=== PATIENT | female | born 1975 | race African-American/Black ===

== ENCOUNTER 2020-08-27 12:59 | Outpatient (CLI) | payer OTHER ==
[2020-08-27 13:48] LABS: BASOPHILS # (AUTO) 0.1 K/uL (0.0-0.2); BASOPHILS % (AUTO) 1.3 % (0.0-2.0); EOSINOPHILS # (AUTO) 0.4 K/uL (0.0-0.4); EOSINOPHILS % (AUTO) 10.5 % (0.0-4.0); HEMATOCRIT 32.8 % (36-48); HEMOGLOBIN 10.4 g/dL (12.0-16.0); LYMPHOCYTES # (AUTO) 1.7 K/uL (1.0-5.5); MEAN CORPUSCULAR HEMOGLOBIN 23 pg (27-31); MEAN CORPUSCULAR HGB CONC 32 % (32-36); MEAN CORPUSCULAR VOLUME 71 fL (79.0-98.0); MONOCYTES # (AUTO) 0.3 K/uL (0.0-1.0); MONOCYTES % (AUTO) 8.3 % (1.7-9.3); NEUTROPHILS # (AUTO) 1.6 K/uL (1.8-7.7); NEUTROPHILS % (AUTO) 37.9 % (40.0-70.0); PLATELET COUNT (AUTO) 170 K/uL (130-430); RED BLOOD CELL COUNT(AUTO) 4.61 MIL/uL (4.2-6.2); RED CELL DISTRIBUTION WIDTH 17.9 % (9.0-15.0); WHITE BLOOD COUNT (AUTO) 4.1 K/uL (4.8-10.8)
[2020-08-27 14:04] LABS: BILIRUBIN,URINE NEGATIVE (NEGATIVE); BLOOD, URINE NEGATIVE (NEGATIVE); CLARITY/URINE CLEAR (CLEAR); COLOR,URINE YELLOW (YELLOW); GLUCOSE,URINE NEGATIVE (NEGATIVE); KETONES,URINE NEGATIVE (NEGATIVE); LEUKOCYTE ESTERASE ,URINE NEGATIVE (NEGATIVE); NITRITE, URINE NEGATIVE (NEGATIVE); PROTEIN URINE NEGATIVE (NEGATIVE); UROBILINOGEN,URINE 0.2 (0.2-1.0)
[2020-08-27 14:14] LABS: ALANINE AMINOTRANSFERASE 19 U/L (12-78); ALBUMIN 3.2 g/dL (3.4-4.8); ASPARTATE AMINOTRANSFERASE 17 U/L (10-37); CALCIUM 8.2 mg/dL (8.4-11.0); CHLORIDE 105 mmol/L (98-107); CHOLESTEROL 157 mg/dL (<200); CREATININE 0.58 mg/dL (0.55-1.30); GLUCOSE 92 mg/dL (70-99); HDL CHOLESTEROL 56 mg/dL (>55); LDL CHOLESTEROL 94 mg/dL (<100); SODIUM SERUM 136 mmol/L (136-145); THYROID STIMULATING HORMONE 1.63 uIu/mL (0.34-4.82); TOTAL BILIRUBIN 0.3 mg/dL (0.0-1.0); TRIGLYCERIDES 43 mg/dL (30-150); UREA NITROGEN, BLOOD 5 mg/dL (8-21)
[2020-08-27 14:17] LABS: ANION GAP < 3 (5-15); GFR AFRICAN AMERICAN 144 mL/min (>90)
== END 2020-08-27 21:00 | disposition home or self-care (01) ==
LOC: SLB 12:59
PROVIDERS: ATTEND Internal Medicine
DX: Z00.00 Encounter for general adult medical examination without abnormal findings (principal); E03.9 Hypothyroidism, unspecified
CPT/HCPCS: 36415; 80053; 80061; 81003; 84443; 85025

== ENCOUNTER 2021-02-08 17:41 | Emergency (ER) | payer OTHER ==
[~2021-02-08] VITALS: Ht 167.6 cm; Wt 81.6 kg
[2021-02-08 17:45] VITALS: BP_SYST 144
--- NOTE | 2021-02-08 17:45 | NUR ---
Pt to [place] [id number] for evaluation. Report given to ANANT Watkins who will assume care.
--- NOTE | 2021-02-08 17:52 | NUR ---
Dr. Briones at bedside to assess.
--- NOTE | 2021-02-08 17:55 | NUR ---
Pt brought by self, A&Ox4, pt presents to ER with pelvic cramping/ vaginal bleeding, pt states he has Hx of fibroids, skin pink and warm, VSS, respirations even and unlabored.
[2021-02-08] MEDS ORDERED: HYDROcodone/ACETAMIN 5-325 MG TAB (NORCO/ VICODIN) PO ONE (18:30)
[2021-02-08] MEDS ORDERED: IBUPROFEN 600 MG TABLET PO ONE (18:30)
[2021-02-08 18:42] LABS: BILIRUBIN,URINE NEGATIVE (NEGATIVE); BLOOD, URINE NEGATIVE (NEGATIVE); CLARITY/URINE CLEAR (CLEAR); COLOR,URINE YELLOW (YELLOW); GLUCOSE,URINE NEGATIVE (NEGATIVE); KETONES,URINE NEGATIVE (NEGATIVE); LEUKOCYTE ESTERASE ,URINE NEGATIVE (NEGATIVE); NITRITE, URINE NEGATIVE (NEGATIVE); PH,URINE 7.5 (5.0-8.0); PROTEIN URINE NEGATIVE (NEGATIVE); UROBILINOGEN,URINE 0.2 (0.2-1.0)
[2021-02-08 18:43] LABS: BASOPHILS % (AUTO) 0.8 % (0.0-2.0); EOSINOPHILS # (AUTO) 0.5 K/uL (0.0-0.4); EOSINOPHILS % (AUTO) 11.9 % (0.0-4.0); HEMATOCRIT 34.6 % (36-48); HEMOGLOBIN 10.8 g/dL (12.0-16.0); LYMPHOCYTES # (AUTO) 1.3 K/uL (1.0-5.5); LYMPHOCYTES % (AUTO) 30.1 % (20.5-51.5); MEAN CORPUSCULAR HEMOGLOBIN 22 pg (27-31); MEAN CORPUSCULAR HGB CONC 31 % (32-36); MEAN CORPUSCULAR VOLUME 71 fL (79.0-98.0); MONOCYTES # (AUTO) 0.4 K/uL (0.0-1.0); MONOCYTES % (AUTO) 9.3 % (1.7-9.3); NEUTROPHILS # (AUTO) 2.1 K/uL (1.8-7.7); NEUTROPHILS % (AUTO) 47.9 % (40.0-70.0); PLATELET COUNT (AUTO) 173 K/uL (130-430); RED BLOOD CELL COUNT(AUTO) 4.91 MIL/uL (4.2-6.2); RED CELL DISTRIBUTION WIDTH 18.3 % (9.0-15.0); WHITE BLOOD COUNT (AUTO) 4.3 K/uL (4.8-10.8)
[2021-02-08 18:48] LABS: CALCIUM 8.6 mg/dL (8.4-11.0); CREATININE 0.51 mg/dL (0.55-1.30); POTASSIUM 3.6 mmol/L (3.5-5.1)
[2021-02-08 18:54] LABS: ALBUMIN 3.5 g/dL (3.4-4.8); TOTAL BILIRUBIN 0.3 mg/dL (0.0-1.0)
[2021-02-08 18:59] LABS: PROTHROMBIN TIME 10.3 SECS (9.5-12.5)
--- NOTE | 2021-02-08 19:12 | NUR ---
Report given to June RN
[2021-02-08 19:24] LABS: C-REACTIVE PROTEIN QUANT 1.9 mg/dL (0-0.5)
[2021-02-08] MEDS ORDERED: AMOX-423 PO (19:37)
[2021-02-08] MEDS ORDERED: IBUP-1969 PO (19:37)
[2021-02-08] MEDS ORDERED: AMOXICILLIN/CLAVULANATE POTASSIUM 875 MG TABLET PO ONE (19:45)
[2021-02-08 20:06] VITALS: BP_SYST 144
--- NOTE | 2021-02-08 20:06 | NUR ---
Patient given written and verbal discharge instructions and verbalizes understanding. ER MD discussed with patient the results and treatment provided. Patient in stable condition. ID arm band removed. Rx of Augmentin and Ibuprofen given. Patient educated on pain management and to follow up with PMD. Pain Scale 1/10. Opportunity for questions provided and answered. Medication side effect fact sheet provided.
== END 2021-02-08 20:06 | disposition home or self-care (01) ==
LOC: SED 17:41
DX: K57.92 Diverticulitis of intestine, part unspecified, without perforation or abscess without bleeding (principal); Z79.899 Other long term (current) drug therapy
CPT/HCPCS: 36415; 76376; 80053; 81003; 82150; 83605; 83690; 84703; 85025; 85610-TC; 85730-TC; 86140; 99284

== ENCOUNTER 2021-02-10 09:35 | Emergency (ER) | payer OTHER ==
[~2021-02-10] VITALS: Ht 167.6 cm; Wt 81.6 kg
[~2021-02-10 09:35] MED LIST: AMOX-423 PO; IBUP-1969 PO
--- NOTE | 2021-02-10 09:43 | NUR ---
Dr. Briones to lobby to assess.
--- NOTE | 2021-02-10 09:45 | NUR ---
Pt to bed 7 for evaluation.
[2021-02-10 09:52] VITALS: BP_SYST 124
--- NOTE | 2021-02-10 09:52 | NUR ---
Pt AAO and ambulatory reporting history of fibroids and persistent intermittent pelvic pain that she describes as cramping. Pt rates pain level 3/10 currently. Pt only other history is thyroid. Pt was seen yesterday and came back for re-evaluation.
[2021-02-10 10:24] LABS: CALCIUM 8.4 mg/dL (8.4-11.0); CREATININE 0.41 mg/dL (0.55-1.30)
[2021-02-10 10:30] LABS: ALBUMIN 3.1 g/dL (3.4-4.8); TOTAL BILIRUBIN 0.1 mg/dL (0.0-1.0)
[2021-02-10 10:33] LABS: BASOPHILS % (AUTO) 1.3 % (0.0-2.0); EOSINOPHILS # (AUTO) 0.4 K/uL (0.0-0.4); EOSINOPHILS % (AUTO) 13.8 % (0.0-4.0); HEMATOCRIT 32.9 % (36-48); HEMOGLOBIN 10.2 g/dL (12.0-16.0); LYMPHOCYTES # (AUTO) 1.3 K/uL (1.0-5.5); LYMPHOCYTES % (AUTO) 50.5 % (20.5-51.5); MEAN CORPUSCULAR HEMOGLOBIN 22 pg (27-31); MEAN CORPUSCULAR HGB CONC 31 % (32-36); MEAN CORPUSCULAR VOLUME 70 fL (79.0-98.0); MONOCYTES # (AUTO) 0.2 K/uL (0.0-1.0); NEUTROPHILS % (AUTO) 27.4 % (40.0-70.0); PLATELET COUNT (AUTO) 161 K/uL (130-430); RED BLOOD CELL COUNT(AUTO) 4.71 MIL/uL (4.2-6.2); WHITE BLOOD COUNT (AUTO) 2.6 K/uL (4.8-10.8)
[2021-02-10 10:36] LABS: NEUTROPHILS # (AUTO) 0.7 K/uL (1.8-7.7)
--- NOTE | 2021-02-10 12:19 | NUR ---
NO ACUTE CHANGE IN STATUS, PT SITTING IN CHAIR. IN NAD.
--- NOTE | 2021-02-10 12:45 | NUR ---
Patient given written and verbal discharge instructions and verbalizes understanding. ER MD discussed with patient the results and treatment provided. Patient in stable condition. ID arm band removed. Patient educated on pain management and to follow up with PMD. Pain Scale [0]. Opportunity for questions provided and answered. Medication side effect fact sheet provided.
[2021-02-10 12:47] VITALS: BP_SYST 139
== END 2021-02-10 12:47 | disposition home or self-care (01) ==
LOC: SED 09:35
DX: K57.92 Diverticulitis of intestine, part unspecified, without perforation or abscess without bleeding (principal); D72.819 Decreased white blood cell count, unspecified; Z79.899 Other long term (current) drug therapy
CPT/HCPCS: 36415; 80053; 82150; 83690; 85025; 99283

== ENCOUNTER 2021-08-02 09:09 | Outpatient (CLI) | payer OTHER ==
[2021-08-02 11:29] LABS: BILIRUBIN,URINE NEGATIVE (NEGATIVE); BLOOD, URINE NEGATIVE (NEGATIVE); CLARITY/URINE CLEAR (CLEAR); GLUCOSE,URINE NEGATIVE (NEGATIVE); KETONES,URINE NEGATIVE (NEGATIVE); LEUKOCYTE ESTERASE ,URINE NEGATIVE (NEGATIVE); NITRITE, URINE NEGATIVE (NEGATIVE); PROTEIN URINE NEGATIVE (NEGATIVE); UROBILINOGEN,URINE 0.2 (0.2-1.0)
[2021-08-02 11:30] LABS: COLOR,URINE STRAW (YELLOW)
[2021-08-02 11:41] LABS: EOSINOPHILS # (AUTO) 0.5 K/uL (0.0-0.4); HEMATOCRIT 33.9 % (36-48); HEMOGLOBIN 10.8 g/dL (12.0-16.0); LYMPHOCYTES # (AUTO) 1.7 K/uL (1.0-5.5); LYMPHOCYTES % (AUTO) 46.3 % (20.5-51.5); MEAN CORPUSCULAR HEMOGLOBIN 23 pg (27-31); MEAN CORPUSCULAR HGB CONC 32 % (32-36); MEAN CORPUSCULAR VOLUME 71 fL (79.0-98.0); MONOCYTES # (AUTO) 0.3 K/uL (0.0-1.0); MONOCYTES % (AUTO) 7.2 % (1.7-9.3); NEUTROPHILS # (AUTO) 1.2 K/uL (1.8-7.7); NEUTROPHILS % (AUTO) 32.5 % (40.0-70.0); PLATELET COUNT (AUTO) 185 K/uL (130-430); RED BLOOD CELL COUNT(AUTO) 4.75 MIL/uL (4.2-6.2); RED CELL DISTRIBUTION WIDTH 18.6 % (9.0-15.0); WHITE BLOOD COUNT (AUTO) 3.7 K/uL (4.8-10.8)
[2021-08-02 11:53] LABS: CALCIUM 8.1 mg/dL (8.4-11.0); CREATININE 0.4 mg/dL (0.55-1.30); POTASSIUM 3.6 mmol/L (3.5-5.1); TOTAL BILIRUBIN 0.2 mg/dL (0.0-1.0); URIC ACID 2.6 mg/dL (2.4-7.0)
[2021-08-02 12:06] LABS: ALBUMIN 3.3 g/dL (3.4-4.8); THYROID STIMULATING HORMONE 0.38 uIu/mL (0.36-3.74)
[2021-08-05 12:52] LABS: HEMOGLOBIN A1C 6.1 % (4.8-5.6)
== END 2021-08-02 18:52 | disposition home or self-care (01) ==
LOC: SUS 09:09
PROVIDERS: ATTEND Internal Medicine
DX: N83.202 Unspecified ovarian cyst, left side (principal); N83.201 Unspecified ovarian cyst, right side; M54.50 Low back pain, unspecified; E78.5 Hyperlipidemia, unspecified; R73.9 Hyperglycemia, unspecified; D64.9 Anemia, unspecified; E56.9 Vitamin deficiency, unspecified; E55.9 Vitamin D deficiency, unspecified; I50.9 Heart failure, unspecified
CPT/HCPCS: 36415; 71046-TC; 71250-TC; 76376; 76856-TC; 80053; 80061; 81003; 82306; 82607; 83036; 83540; 83550; 83880; 84443; 84550; 85025

== ENCOUNTER 2022-07-14 10:02 | Outpatient (CLI) | payer OTHER ==
[2022-07-14 11:20] LABS: EOSINOPHILS # (AUTO) 0.3 K/uL (0.0-0.4); HEMATOCRIT 35.6 % (36-48); HEMOGLOBIN 11.3 g/dL (12.0-16.0); LYMPHOCYTES # (AUTO) 1.6 K/uL (1.0-5.5); LYMPHOCYTES % (AUTO) 46.6 % (20.5-51.5); MEAN CORPUSCULAR HEMOGLOBIN 24 pg (27-31); MEAN CORPUSCULAR HGB CONC 32 % (32-36); MEAN CORPUSCULAR VOLUME 77 fL (79.0-98.0); MONOCYTES # (AUTO) 0.3 K/uL (0.0-1.0); MONOCYTES % (AUTO) 8.8 % (1.7-9.3); NEUTROPHILS # (AUTO) 1.1 K/uL (1.8-7.7); NEUTROPHILS % (AUTO) 33.6 % (40.0-70.0); PLATELET COUNT (AUTO) 192 K/uL (130-430); RED BLOOD CELL COUNT(AUTO) 4.64 MIL/uL (4.2-6.2); RED CELL DISTRIBUTION WIDTH 16.9 % (9.0-15.0); WHITE BLOOD COUNT (AUTO) 3.4 K/uL (4.8-10.8)
[2022-07-14 11:42] LABS: ALBUMIN 3.1 g/dL (3.4-4.8); CALCIUM 7.7 mg/dL (8.4-11.0); CREATININE 0.5 mg/dL (0.55-1.30); THYROID STIMULATING HORMONE 0.8 uIu/mL (0.34-4.82); TOTAL BILIRUBIN 0.2 mg/dL (0.0-1.0)
== END 2022-07-14 18:52 | disposition home or self-care (01) ==
LOC: SLB 10:02
PROVIDERS: ATTEND Otolaryngology
DX: Z11.1 Encounter for screening for respiratory tuberculosis (principal); E03.9 Hypothyroidism, unspecified; D64.9 Anemia, unspecified; E55.9 Vitamin D deficiency, unspecified; E56.9 Vitamin deficiency, unspecified
CPT/HCPCS: 36415; 71046-TC; 80053; 80061; 82306; 82607; 83037; 84443; 85025

== ENCOUNTER 2022-07-31 12:53 | Outpatient (CLI) | payer OTHER | END 2022-07-31 19:14 | disposition home or self-care (01) | LOC: SCT 12:53 | PROVIDERS: ATTEND Internal Medicine | DX: M51.36 Other intervertebral disc degeneration, lumbar region (principal); M51.27 Other intervertebral disc displacement, lumbosacral region; M48.061 Spinal stenosis, lumbar region without neurogenic claudication; M50.223 Other cervical disc displacement at C6-C7 level; M48.26 Kissing spine, lumbar region; M43.23 Fusion of spine, cervicothoracic region; E07.89 Other specified disorders of thyroid; R09.89 Other specified symptoms and signs involving the circulatory and respiratory systems; M47.812 Spondylosis without myelopathy or radiculopathy, cervical region; M47.816 Spondylosis without myelopathy or radiculopathy, lumbar region | CPT/HCPCS: 71250-TC; 72141; 72148; 76376; 76536-TC ==

== ENCOUNTER 2022-08-06 10:18 | Outpatient (CLI) | payer OTHER | END 2022-08-06 20:36 | disposition home or self-care (01) | LOC: SUS 10:18 | PROVIDERS: ATTEND Internal Medicine | DX: J18.9 Pneumonia, unspecified organism (principal); I65.29 Occlusion and stenosis of unspecified carotid artery | CPT/HCPCS: 71046-TC; 93880 ==

== ENCOUNTER 2022-08-11 10:53 | Outpatient (CLI) | payer OTHER | END 2022-08-11 18:32 | disposition home or self-care (01) | LOC: SUS 10:53 | PROVIDERS: ATTEND Internal Medicine | DX: I65.22 Occlusion and stenosis of left carotid artery (principal) | CPT/HCPCS: 93971 ==

== ENCOUNTER 2023-01-21 08:45 | Outpatient (CLI) | payer OTHER ==
[2023-01-21 10:20] LABS: HEMOGLOBIN A1C 5.98 % (<5.7)
[2023-01-21 10:31] LABS: ALBUMIN 3.2 g/dL (3.4-4.8); CALCIUM 8.9 mg/dL (8.4-11.0); CREATININE 0.47 mg/dL (0.55-1.30); POTASSIUM 3.8 mmol/L (3.5-5.1); THYROID STIMULATING HORMONE 0.45 uIu/mL (0.34-4.82); TOTAL BILIRUBIN 0.2 mg/dL (0.0-1.0); TOTAL PROTEIN, SERUM 6.8 g/dL (6.4-8.3)
[2023-01-21 10:44] LABS: BILIRUBIN,URINE NEGATIVE (NEGATIVE); BLOOD, URINE NEGATIVE (NEGATIVE); CLARITY/URINE CLEAR (CLEAR); COLOR,URINE YELLOW (YELLOW); GLUCOSE,URINE NEGATIVE (NEGATIVE); KETONES,URINE NEGATIVE (NEGATIVE); LEUKOCYTE ESTERASE ,URINE NEGATIVE (NEGATIVE); NITRITE, URINE NEGATIVE (NEGATIVE); PROTEIN URINE NEGATIVE (NEGATIVE); UROBILINOGEN,URINE 0.2 (0.2-1.0)
[2023-01-21 11:29] LABS: HEMATOCRIT 38.8 % (36-48); HEMOGLOBIN 12.3 g/dL (12.0-16.0); MEAN CORPUSCULAR HEMOGLOBIN 26 pg (27-31); MEAN CORPUSCULAR HGB CONC 32 % (32-36); MEAN CORPUSCULAR VOLUME 81 fL (79.0-98.0); PLATELET COUNT (AUTO) 169 K/uL (130-430); RED BLOOD CELL COUNT(AUTO) 4.78 MIL/uL (4.2-6.2); WHITE BLOOD COUNT (AUTO) 3.4 K/uL (4.8-10.8)
[2023-01-21 14:11] LABS: ATYPICAL LYMPHOCYTES % 5 % (0-0)
[2023-01-21 14:12] LABS: PLATELET ESTIMATE ADEQUATE (ADEQUATE)
[2023-01-21 14:19] LABS: EOSINOPHILS % (MANUAL) 11 % (0-7); LYMPHOCYTES % (MANUAL) 35 % (20-46); MONOCYTES % (MANUAL) 10 % (0-11)
[2023-01-21 14:56] LABS: BASOPHILS % (MANUAL) 0 % (0-2)
[2023-01-21 14:57] LABS: ERYTHROCYTE SEDIMENTATION RATE 38 MM/HR (0-20)
== END 2023-01-21 18:17 | disposition home or self-care (01) ==
LOC: SLB 08:45
PROVIDERS: ATTEND Internal Medicine
DX: N30.00 Acute cystitis without hematuria (principal); R73.9 Hyperglycemia, unspecified; E03.9 Hypothyroidism, unspecified; E78.5 Hyperlipidemia, unspecified; E55.9 Vitamin D deficiency, unspecified; E56.9 Vitamin deficiency, unspecified
CPT/HCPCS: 36415; 80053; 80061; 81001; 81003; 82306; 82607; 83037; 83735; 84443; 85007; 85027; 85651-TC

== ENCOUNTER 2023-01-26 08:16 | Outpatient (CLI) | payer OTHER | END 2023-01-26 18:30 | disposition home or self-care (01) | LOC: SCT 08:16 | PROVIDERS: ATTEND Internal Medicine | DX: R22.2 Localized swelling, mass and lump, trunk (principal); D64.9 Anemia, unspecified | CPT/HCPCS: 71270; 76376; Q9967 ==

== ENCOUNTER 2023-04-02 16:03 | Outpatient (CLI) | payer OTHER ==
[2023-04-02 17:34] LABS: ALBUMIN 3.4 g/dL (3.4-4.8); CALCIUM 8.8 mg/dL (8.4-11.0); CREATININE 0.68 mg/dL (0.55-1.30); POTASSIUM 4.1 mmol/L (3.5-5.1); TOTAL BILIRUBIN 0.2 mg/dL (0.0-1.0); TOTAL PROTEIN, SERUM 7.2 g/dL (6.4-8.3)
== END 2023-04-02 18:36 | disposition home or self-care (01) ==
LOC: SLB 16:03
PROVIDERS: ATTEND Internal Medicine
DX: E83.51 Hypocalcemia (principal); D64.9 Anemia, unspecified
CPT/HCPCS: 36415; 80053

== ENCOUNTER 2023-05-01 13:05 | Outpatient (CLI) | payer OTHER | END 2023-05-01 20:25 | disposition home or self-care (01) | LOC: SMI 13:05 | PROVIDERS: ATTEND Internal Medicine | DX: M47.817 Spondylosis without myelopathy or radiculopathy, lumbosacral region (principal); M51.27 Other intervertebral disc displacement, lumbosacral region; M51.37 Other intervertebral disc degeneration, lumbosacral region; M51.34 Other intervertebral disc degeneration, thoracic region; D17.39 Benign lipomatous neoplasm of skin and subcutaneous tissue of other sites | CPT/HCPCS: 72146; 72148 ==

== ENCOUNTER 2023-05-13 15:42 | Outpatient (CLI) | payer OTHER ==
[2023-05-13 16:35] LABS: HEMATOCRIT 37.1 % (36-48); HEMOGLOBIN 12.3 g/dL (12.0-16.0); MEAN CORPUSCULAR HEMOGLOBIN 27 pg (27-31); MEAN CORPUSCULAR HGB CONC 33 % (32-36); MEAN CORPUSCULAR VOLUME 81 fL (79.0-98.0); PLATELET COUNT (AUTO) 181 K/uL (130-430); RED CELL DISTRIBUTION WIDTH 14.4 % (9.0-15.0); WHITE BLOOD COUNT (AUTO) 3.9 K/uL (4.8-10.8)
[2023-05-13 17:00] LABS: ALBUMIN 3.3 g/dL (3.4-4.8); CALCIUM 8.5 mg/dL (8.4-11.0); CREATININE 0.52 mg/dL (0.55-1.30); HEMOGLOBIN A1C 5.88 % (<5.7); POTASSIUM 3.8 mmol/L (3.5-5.1); TOTAL BILIRUBIN 0.2 mg/dL (0.0-1.0); TOTAL IRON BIND. CAPACITY 421 ug/dL (250-450)
[2023-05-13 19:56] LABS: BAND % (MANUAL) 0 % (0-6); BASOPHILS % (MANUAL) 0 % (0-2); EOSINOPHILS % (MANUAL) 11 % (0-7); LYMPHOCYTES % (MANUAL) 40 % (20-46); MONOCYTES % (MANUAL) 7 % (0-11); PLATELET ESTIMATE ADEQUATE (ADEQUATE)
== END 2023-05-13 19:47 | disposition home or self-care (01) ==
LOC: SLB 15:42
PROVIDERS: ATTEND Internal Medicine
DX: D64.9 Anemia, unspecified (principal); R73.9 Hyperglycemia, unspecified
CPT/HCPCS: 36415; 80053; 83037; 83540; 83550; 85007; 85027

== ENCOUNTER 2023-05-15 13:24 | Outpatient (CLI) | payer OTHER ==
[2023-05-15] MEDS ORDERED: DIATR MEGLU/DIATRIZ SOD 30 ML SOLUTION PO ONE (13:35)
== END 2023-05-15 20:04 | disposition home or self-care (01) ==
LOC: SCT 13:24
PROVIDERS: ATTEND Internal Medicine
DX: R16.0 Hepatomegaly, not elsewhere classified (principal); K57.30 Diverticulosis of large intestine without perforation or abscess without bleeding; I87.8 Other specified disorders of veins; N83.02 Follicular cyst of left ovary; N83.01 Follicular cyst of right ovary
CPT/HCPCS: 74177; Q9967; Q9964

== ENCOUNTER 2023-06-01 13:15 | Outpatient (CLI) | payer OTHER | END 2023-06-01 18:13 | disposition home or self-care (01) | LOC: SUS 13:15 | PROVIDERS: ATTEND Specialist | DX: N83.292 Other ovarian cyst, left side (principal); N83.291 Other ovarian cyst, right side; R10.2 Pelvic and perineal pain; Z78.0 Asymptomatic menopausal state; N81.6 Rectocele; N81.10 Cystocele, unspecified | CPT/HCPCS: 76856 ==

== ENCOUNTER 2023-09-24 23:15 | Emergency (ER) | payer OTHER ==
[~2023-09-24] VITALS: Ht 167.6 cm; Wt 84.4 kg
[2023-09-24 23:18] VITALS: BP_SYST 147; PULSE 77; RESP 22; TEMP 97.3; O2SAT 98
[2023-09-25] MEDS: ENALAPRILAT DIHYDRATE 1.25 MG/ML VIAL IVP ONE (00:06)
[2023-09-25 00:12] LABS: BASOPHILS % (AUTO) 0.8 % (0.0-2.0); EOSINOPHILS # (AUTO) 0.8 K/uL (0.0-0.4); EOSINOPHILS % (AUTO) 16.7 % (0.0-4.0); HEMATOCRIT 36.6 % (36-48); HEMOGLOBIN 12.3 g/dL (12.0-16.0); LYMPHOCYTES # (AUTO) 2.1 K/uL (1.0-5.5); LYMPHOCYTES % (AUTO) 45.3 % (20.5-51.5); MEAN CORPUSCULAR HEMOGLOBIN 27 pg (27-31); MEAN CORPUSCULAR HGB CONC 34 % (32-36); MEAN CORPUSCULAR VOLUME 81 fL (79.0-98.0); MONOCYTES # (AUTO) 0.4 K/uL (0.0-1.0); MONOCYTES % (AUTO) 7.7 % (1.7-9.3); NEUTROPHILS # (AUTO) 1.4 K/uL (1.8-7.7); NEUTROPHILS % (AUTO) 29.5 % (40.0-70.0); PLATELET COUNT (AUTO) 162 K/uL (130-430); RED BLOOD CELL COUNT(AUTO) 4.54 MIL/uL (4.2-6.2); RED CELL DISTRIBUTION WIDTH 14.2 % (9.0-15.0); WHITE BLOOD COUNT (AUTO) 4.7 K/uL (4.8-10.8)
[2023-09-25 00:23] LABS: CALCIUM 8.9 mg/dL (8.4-11.0); CREATININE 0.52 mg/dL (0.55-1.30); POTASSIUM 3.5 mmol/L (3.5-5.1)
[2023-09-25] MEDS ORDERED: LISI1TAB57 PO (01:26)
[2023-09-25 01:29] VITALS: BP_SYST 129; PULSE 65; RESP 20; TEMP 97.3; O2SAT 94
== END 2023-09-25 01:29 | disposition home or self-care (01) ==
LOC: SED 23:15
DX: R51.9 Headache, unspecified (principal); R60.0 Localized edema; R53.1 Weakness; I10 Essential (primary) hypertension; Z79.899 Other long term (current) drug therapy; Z79.2 Long term (current) use of antibiotics
CPT/HCPCS: 36415; 80048; 85025; 96374; 99283

== ENCOUNTER 2023-12-24 17:21 | Emergency (ER) | payer OTHER ==
[~2023-12-24] VITALS: Ht 167.6 cm; Wt 81.6 kg
[2023-12-24 17:21] VITALS: BP_SYST 145; PULSE 63; RESP 17; TEMP 97.1; O2SAT 99
[~2023-12-24 17:21] MED LIST changes: +LISI1TAB57 PO
[2023-12-24 18:31] LABS: BASOPHILS % (AUTO) 0.9 % (0.0-2.0); EOSINOPHILS # (AUTO) 0.8 K/uL (0.0-0.4); EOSINOPHILS % (AUTO) 16.4 % (0.0-4.0); HEMOGLOBIN 12.6 g/dL (12.0-16.0); LYMPHOCYTES % (AUTO) 42.9 % (20.5-51.5); MEAN CORPUSCULAR HEMOGLOBIN 28 pg (27-31); MEAN CORPUSCULAR HGB CONC 34 % (32-36); MEAN CORPUSCULAR VOLUME 81 fL (79.0-98.0); MONOCYTES # (AUTO) 0.3 K/uL (0.0-1.0); NEUTROPHILS # (AUTO) 1.6 K/uL (1.8-7.7); NEUTROPHILS % (AUTO) 33.8 % (40.0-70.0); PLATELET COUNT (AUTO) 165 K/uL (130-430); RED BLOOD CELL COUNT(AUTO) 4.56 MIL/uL (4.2-6.2); RED CELL DISTRIBUTION WIDTH 14.2 % (9.0-15.0); WHITE BLOOD COUNT (AUTO) 4.7 K/uL (4.8-10.8)
[2023-12-24 18:53] LABS: ANION GAP 7 (5-15); CALCIUM 8.6 mg/dL (8.4-11.0); CARBON DIOXIDE 28 mmol/L (23-29); CHLORIDE 106 mmol/L (98-107); CREATININE 0.61 mg/dL (0.55-1.30); GFR AFRICAN AMERICAN 134 mL/min (>90); GLUCOSE 92 mg/dL (74-106); POTASSIUM 3.9 mmol/L (3.5-5.1); SODIUM SERUM 141 mmol/L (136-145); UREA NITROGEN, BLOOD 14 mg/dL (8-21)
[2023-12-24 18:55] LABS: GFR NON AFRICAN-AMERICAN 111 mL/min (>90)
[2023-12-24] MEDS ORDERED: IBUP-1969 PO (19:14)
[2023-12-24] MEDS ORDERED: TRAM50TA2 PO (19:14)
[2023-12-24] MEDS: KETOROLAC TROMETHAMINE 60 MG/2 ML VIAL IM ONE (19:32)
[2023-12-24 19:34] VITALS: BP_SYST 145; PULSE 63; RESP 17; TEMP 97.1; O2SAT 99
== END 2023-12-24 19:34 | disposition home or self-care (01) ==
LOC: SED 17:21
DX: R07.89 Other chest pain (principal); I10 Essential (primary) hypertension; E07.9 Disorder of thyroid, unspecified; Z79.899 Other long term (current) drug therapy; Z79.2 Long term (current) use of antibiotics
CPT/HCPCS: 99285; 71045; 80048; 85025; 84484; 36415; 93005; 81025; 96372; J1885